=== PATIENT | female | born 1945 | race Caucasian/White ===

== ENCOUNTER 2024-10-04 20:42 | Inpatient (IN) | payer OTHER ==
[~2024-10-04] VITALS: Ht 167.6 cm; Wt 61.2 kg
[2024-10-04 23:03] LABS: BASOPHILS % (AUTO) 0.4 % (0.0-2.0); EOSINOPHILS # (AUTO) 0.3 K/uL (0.0-0.7); HEMATOCRIT 34 % (33-45); HEMOGLOBIN 12.1 g/dL (11.5-14.8); LYMPHOCYTES # (AUTO) 1.4 K/uL (0.8-4.8); LYMPHOCYTES % (AUTO) 16.5 % (20.0-44.0); MEAN CORPUSCULAR HEMOGLOBIN 31 PG (26.0-33.0); MEAN CORPUSCULAR HGB CONC 35 g/dl (31.0-36.0); MEAN CORPUSCULAR VOLUME 89 fL (82-100); MONOCYTES % (AUTO) 11.1 % (2.0-12.0); NEUTROPHILS # (AUTO) 5.9 K/uL (1.8-8.9); PLATELET COUNT (AUTO) 248 K/uL (150-450); RED BLOOD CELL COUNT(AUTO) 3.87 MIL/uL (4.0-5.2); WHITE BLOOD COUNT (AUTO) 8.7 K/uL (4.3-11.0)
[2024-10-04 23:17] LABS: CALCIUM, SERUM 8.8 mg/dL (8.5-10.1); CREATININE 0.9 mg/dL (0.6-1.3); POTASSIUM 4.2 mmol/L (3.5-5.1)
[2024-10-04 23:29] LABS: ALBUMIN 3.5 g/dL (3.4-5.0); BILIRUBIN,TOTAL 0.6 mg/dL (0.2-1.0); TOTAL PROTEIN, SERUM 7.3 g/dL (6.4-8.2)
[2024-10-04 23:53] LABS: APPEARANCE,URINE CLEAR (CLEAR); BILIRUBIN,URINE NEGATIVE (NEGATIVE); BLOOD, URINE NEGATIVE Ery/uL (NEGATIVE); COLOR,URINE YELLOW (YELLOW); KETONES,URINE NEGATIVE (NEGATIVE); LEUKOCYTE ESTERASE ,URINE NEGATIVE (NEGATIVE); NITRITE, URINE NEGATIVE (NEGATIVE); PROTEIN,URINE NEGATIVE (NEGATIVE); UGLUCOSE NEGATIVE (NEGATIVE); UROBILINOGEN,URINE 0.2 EU/dL (0.2)
[2024-10-05] MEDS ORDERED: CT SWABBABLE VALVE TRANS SET 1 EA INFUS.SET MC ONE
[2024-10-05] MEDS ORDERED: IOHEXOL-350 100 ML VIAL IV ONE
[2024-10-05] MEDS ORDERED: ONDANSETRON HCL/PF 4 MG/2 ML VIAL ONE ×2 (02:53→08:16)
[2024-10-05] MEDS ORDERED: MORPHINE SULFATE INJ 2 MG/ML DISP.SYRIN ONE (02:53)
[2024-10-05] MEDS ORDERED: AZITHROMYCIN 500 MG VIAL ONE (02:53)
[2024-10-05] MEDS: MORPHINE SULFATE INJ 2 MG/ML DISP.SYRIN IV ONE (03:03)
[2024-10-05] MEDS: ONDANSETRON HCL/PF - ER 4 MG/2 ML VIAL IV ONE (03:03)
[2024-10-05] MEDS: AZITHROMYCIN 500 MG in IV D5W 250 ML IV ONE (03:03)
[2024-10-05] MEDS ORDERED: ALBUTEROL FS 2.5 MG/0.5 ML VIAL.NEB NEB PRN (07:00)
[2024-10-05] MEDS ORDERED: IPRATROPIUM NEB FS 0.5 MG/2.5 ML AMPUL.NEB NEB PRN (07:00)
[2024-10-05] MEDS ORDERED: ACETAMINOPHEN 325 MG TABLET ONE (08:06)
[2024-10-05] MEDS: ACETAMINOPHEN 325 MG TABLET PO PRN (08:15)
[2024-10-05] MEDS: ONDANSETRON HCL/PF 4 MG/2 ML VIAL IVP PRN (08:20)
[2024-10-05] MEDS: VANCOMYCIN HCL 1.25 GM in IV D5W 250 ML IV ONE (08:24)
[2024-10-05] MEDS ORDERED: TRAZ-182 PO (08:36)
[2024-10-05] MEDS ORDERED: PANTOPRAZOLE SODIUM PO (08:36)
[2024-10-05] MEDS ORDERED: ASPI-1169 PO (08:36)
[2024-10-05] MEDS ORDERED: ROSU10TA2 PO (08:36)
[2024-10-05] MEDS: SENNOSIDES/DOCUSATE SODIUM 1 TAB TABLET PO SCH (09:00)
[2024-10-05] MEDS ORDERED: AZTREONAM 1 G in IV NS 0.9% 100 ML IV SCH (10:30)
[2024-10-05 11:00] VITALS: BP 137/63; TEMP 98.2; O2SAT 98
[2024-10-05] MEDS: IV NS 0.9% 1,000 ML IV PRN (11:23)
[2024-10-05] MEDS: diphenhydrAMINE HCL ELIX 25 MG/10 ML UDC PO PRN (11:37)
[2024-10-05] MEDS: ENOXAPARIN SODIUM 40 MG/0.4 ML DISP.SYRIN SQ SCH (11:39)
[2024-10-05 13:36] LABS: IRON, SERUM 28 ug/dl (50-175); TOTAL IRON BINDING CAPACITY 275 ug/dl (250-450)
[2024-10-05 13:39] LABS: CHOLESTEROL 124 mg/dL (<200); FERRITIN 87 ng/mL (8-388); HDL CHOLESTEROL 74 mg/dL (40-60); LDL 50 mg/dL (0-99); TRIGLYCERIDES 26 mg/dL (30-150)
[2024-10-05] MEDS ORDERED: PANT40TA49 PO (15:43)
[2024-10-05 16:00] VITALS: BP 128/62; TEMP 97.9; O2SAT 98
[2024-10-05] MEDS: MEROPENEM 1 G in IV NS 0.9% 100 ML IV SCH (16:00)
[2024-10-05] MEDS: INDOMETHACIN 25 MG CAPSULE PO SCH (17:00)
[2024-10-05 20:00] VITALS: BP 128/49; TEMP 97.7; O2SAT 96
[2024-10-05] MEDS: VANCOMYCIN 750 MG in IV D5W 250 ML IV SCH (20:00)
[2024-10-05] MEDS: TRAZODONE 50 MG TABLET PO SCH (21:39)
[2024-10-06 06:51] LABS: CALCIUM, SERUM 7.8 mg/dL (8.5-10.1); CREATININE 0.9 mg/dL (0.6-1.3); MAGNESIUM 2.2 mg/dL (1.8-2.4); PHOSPHORUS 3.7 mg/dL (2.5-4.9)
[2024-10-06 06:54] LABS: BASOPHILS % (AUTO) 0.5 % (0.0-2.0); EOSINOPHILS # (AUTO) 0.5 K/uL (0.0-0.7); EOSINOPHILS % (AUTO) 7.1 % (0.0-6.0); HEMATOCRIT 30 % (33-45); HEMOGLOBIN 10.7 g/dL (11.5-14.8); LYMPHOCYTES # (AUTO) 1.5 K/uL (0.8-4.8); LYMPHOCYTES % (AUTO) 22.1 % (20.0-44.0); MEAN CORPUSCULAR HEMOGLOBIN 31 PG (26.0-33.0); MEAN CORPUSCULAR HGB CONC 36 g/dl (31.0-36.0); MEAN CORPUSCULAR VOLUME 88 fL (82-100); MONOCYTES # (AUTO) 0.9 K/uL (0.1-1.30); MONOCYTES % (AUTO) 13.3 % (2.0-12.0); NEUTROPHILS # (AUTO) 3.7 K/uL (1.8-8.9); PLATELET COUNT (AUTO) 233 K/uL (150-450); RED BLOOD CELL COUNT(AUTO) 3.44 MIL/uL (4.0-5.2); RED CELL DISTRIBUTION WIDTH 13.8 % (11.5-15.0); WHITE BLOOD COUNT (AUTO) 6.6 K/uL (4.3-11.0)
[2024-10-06 07:27] LABS: THYROID STIMULATING HORMONE 1.69 uIU/mL (0.358-3.74); URIC ACID 3.7 mg/dL (2.6-7.2)
[2024-10-06 16:00] VITALS: BP 132/53; TEMP 98.2; O2SAT 96
[2024-10-06 20:00] VITALS: BP 142/67; TEMP 98.4; O2SAT 100
[2024-10-06] MEDS ORDERED: DOXYCYCLINE 100 MG in IV D5W 100 ML IV SCH (21:00)
[2024-10-06] MEDS: LINEZOLID RTU BAG 600 MG in PREMIX 1 EA IV SCH (21:49)
[2024-10-07 06:43] LABS: CALCIUM, SERUM 8.1 mg/dL (8.5-10.1); CREATININE 0.9 mg/dL (0.6-1.3); POTASSIUM 4.3 mmol/L (3.5-5.1)
[2024-10-07 08:00] VITALS: BP 144/55; TEMP 97.7; O2SAT 99
[2024-10-07] MEDS ORDERED: CLIN300C12 PO (11:53)
[2024-10-07 15:11] LABS: URINE SODIUM, RANDOM 54 mmol/l (40-220)
[2024-10-08 12:19] LABS: OSMOLALITY,URINE 232 mOS/kg (340-1090)
== END 2024-10-07 12:30 | disposition home or self-care (01) | DRG 194 ==
LOC: ER 22:18 → TRANSITION 10-05 05:22 → TELE 10-05 10:49 → MED 10-06 13:30
DX: J15.9 Unspecified bacterial pneumonia (principal); E87.1 Hypo-osmolality and hyponatremia; Z88.1 Allergy status to other antibiotic agents; Z20.822 Contact with and (suspected) exposure to COVID-19; R09.1 Pleurisy; Z88.0 Allergy status to penicillin; Z87.09 Personal history of other diseases of the respiratory system; E86.9 Volume depletion, unspecified; D50.9 Iron deficiency anemia, unspecified; Z79.82 Long term (current) use of aspirin; Z79.899 Other long term (current) drug therapy
CPT/HCPCS: 36415; 71045-TC; 80048-TC; 80053-TC; 80061-TC; 80202-TC; 82728-TC; 83540-TC; 83690-TC; 83735-TC; 83880; 83935-TC; 84100-TC; 84300-TC; 84439-TC; 84443-TC; 84484-TC; 84550-TC; 85025-TC; 85378-TC; 87040-TC; 93307-TC; A4216; A4223; G0378; J0456; J1650; J2020; J2185; J2270; J2405; J3371; J7030; J7060; Q0163; Q9967